=== PATIENT | male | born 1960 | race Caucasian/White ===

== ENCOUNTER 2023-06-15 10:27 | Inpatient (IN) | payer OTHER ==
[2023-06-15] VITALS (19 sets, daily range): BP systolic 80–165; BP diastolic 50–118; PULSE 63–95; RESP 20–24; TEMP 94.9; O2SAT 91–98
[~2023-06-15] VITALS: Ht 175.3 cm; Wt 142.6 kg
[2023-06-15] MEDS: propofol 1000mg/100ml bottle 100 ML IV SCH ×2 (10:40→12:09)
[2023-06-15] MEDS ORDERED: vancomycin inj 1,750 MG in normal saline 500ml IV soln 350 ML IV ONE (10:45)
[2023-06-15] MEDS: methylPREDNISolone sod succ 125mg/2ml vial IV ONE (10:57)
[2023-06-15] MEDS: propofol 1000mg/100ml bottle 100 ML IV ONE (11:01)
[2023-06-15 11:08] LABS: BASOPHILS % (AUTO) 0.6 % (0-1); EOSINOPHILS % (AUTO) 0 % (0-6); LYMPHOCYTES # (AUTO) 0.6 X10'3 (1.1-4.8); LYMPHOCYTES % (AUTO) 8.4 % (21-51); MEAN PLATELET VOLUME 9.2 FL (7.4-10.4); MONOCYTES # (AUTO) 0.7 X10'3 (0-0.9); MONOCYTES % (AUTO) 9.1 % (2-12); NEUTROPHILS # (AUTO) 6.2 X10'3 (1.8-7.7); NEUTROPHILS % (AUTO) 81.9 % (42-75); PLATELET COUNT 241 X10'3 (140-440); WHITE BLOOD COUNT 7.6 X10'3 (4.5-11.0)
[2023-06-15 11:12] LABS: ALANINE AMINOTRANSFERASE 32 U/L (12-78); ALBUMIN 3.5 G/DL (3.4-5.0); ALBUMIN/GLOBULIN RATIO 0.8 (1.1-1.5); ALKALINE PHOSPHATASE 141 IU/L (46-116); ANION GAP 9 (8-16); APTT 28 SECONDS (22-32); ASPARTATE AMINO TRANSFERASE 23 U/L (10-37); BILIRUBIN,TOTAL 0.3 MG/DL (0.1-1.0); BLOOD UREA NITROGEN 80 MG/DL (7-18); BUN/CREATININE RATIO 27.6 (10.0-20.0); CALCIUM 8.7 MG/DL (8.5-10.1); CHLORIDE 98 MMOL/L (99-107); GLUCOSE 223 MG/DL (70-104); INR 1.3 INR; POTASSIUM 5.8 MMOL/L (3.5-5.1); PROTHROMBIN TIME 13.5 SECONDS (9.0-12.0); SODIUM 136 MMOL/L (135-145); TOTAL CARBON DIOXIDE 29.1 MMOL/L (24-32); TOTAL PROTEIN 7.8 G/DL (6.4-8.2); eCRCL 26 ML/MIN; eGFR 22 ML/MIN
[2023-06-15 11:20] LABS: LIPASE 66 U/L (16-77); PRO BRAIN NATRIURETIC PEPTIDE 7886 PG/ML (0-125)
[2023-06-15 11:22] LABS: HEMATOCRIT 54.6 % (42.0-52.0); HEMOGLOBIN 17.5 g/dl (14.0-17.9); MEAN CORPUSCULAR HEMOGLOBIN 33.5 PG (27.0-31.0); MEAN CORPUSCULAR HGB CONC 32.1 g/dL (33.0-36.5); MEAN CORPUSCULAR VOLUME 104.5 FL (78-98); RED BLOOD COUNT 5.23 X10'6 (4.70-6.10); RED CELL DISTRIBUTION WIDTH 14.1 % (11.5-14.5)
[2023-06-15 11:28] LABS: ABG BASE EXCESS -6.3 mmol/L (-2.0-2.0); ABG HCO3 27.4 mmol/L (22.0-26.0); ABG OXYGEN SATURATION 86.2 % (94-97); ABG PCO2 (T) 79.4 mmHg (35.0-48.0); ABG PH (T) 7.132 (7.340-7.440); ABG PO2 (T) 43.9 mmHg (75.0-100.0); ALLEN'S TEST POSITIVE; FCOHb 1.5 % (0.0-3.9); FHHb 13.5 % (0.0-5.0); FMetHb 0.4 % (0.0-1.5); FO2Hb 84.6 % (94-97); MODE VENT - AC; PATIENT TEMPERATURE 33.3; PEEP 5 cm H2O; RESPIRATORY RATE 12 b/min; TIDAL VOLUME 475 mL; TOTAL HEMOGLOBIN 19.6 G/dl (14.0-17.9)
[2023-06-15] MEDS: etomidate 2mg/ml inj. IV ONE (11:35)
[2023-06-15] MEDS: succinylcholine 20mg/ml inj IV ONE (11:36)
[2023-06-15] MEDS ORDERED: VANCOmycin 2,000MG in NS 500ml IV soln IV ONE (11:40)
[2023-06-15] MEDS ORDERED: acetaminophen 325mg tablet PO PRN ×2 (12:55)
[2023-06-15] MEDS ORDERED: ipratropium/albuterol 3ml nebule NEB PRN (12:55)
[2023-06-15] MEDS: LidoCAINE 2% Topical Jelly 11mL syringe (UROJET) TOP ONE (12:55)
[2023-06-15] MEDS ORDERED: morphine 2 MG/ML inj. syringe IV PRN (12:55)
[2023-06-15] MEDS ORDERED: albuterol 2.5 MG/3 ML nebule NEB PRN (12:55)
[2023-06-15] MEDS ORDERED: magnesium hydroxide 30ml (MOM) UD suspension PO PRN (12:55)
[2023-06-15] MEDS ORDERED: ondansetron/PF 4mg/2ml inj IV PRN (12:55)
[2023-06-15] MEDS ORDERED: bisacodyl 10mg suppository rectal RC PRN (12:55)
[2023-06-15] MEDS: normal saline 1000ml 1,000 ML IV ONE ×2 (12:57→18:55)
[2023-06-15] MEDS: vancomycin/NS 1 GM ADD-VANTAGE 250 ML X 1 DOSE IV ONE (12:58)
[2023-06-15] MEDS: FENTANYL-0.9 % NACL/PF 100 ML IV PRN (12:59)
[2023-06-15] MEDS: piperacillin/tazo 4.5gm/100ml 100 ML IV ONE (13:00)
[2023-06-15 13:31] LABS: ABG BASE EXCESS -3.9 mmol/L (-2.0-2.0); ABG OXYGEN SATURATION 84.6 % (94-97); ABG PCO2 (T) 54.1 mmHg (35.0-48.0); ABG PH (T) 7.269 (7.340-7.440); ALLEN'S TEST POSITIVE; FCOHb 1.8 % (0.0-3.9); FHHb 15.1 % (0.0-5.0); FMetHb 0.3 % (0.0-1.5); FO2Hb 82.8 % (94-97); MODE VENT - AC; PATIENT TEMPERATURE 34.5; PEEP 8 cm H2O; TOTAL HEMOGLOBIN 17.4 G/dl (14.0-17.9)
[2023-06-15] MEDS: insulin regular, human 10 units/0.1 ml syringe IV ONE (13:48)
[2023-06-15] MEDS: dextrose 50%-water 50ml dispensing syringe IV ONE (13:49)
[2023-06-15] MEDS: normal saline 1000ml 1,000 ML IV SCH (14:18)
[2023-06-15] MEDS ORDERED: METO-539 PO (16:20)
[2023-06-15] MEDS ORDERED: ASPI-611 PO (16:20)
[2023-06-15] MEDS ORDERED: LISI20TA28 PO (16:20)
[2023-06-15] MEDS ORDERED: FURO40TA4 PO (16:20)
[2023-06-15] MEDS ORDERED: METF-1203 PO (16:20)
[2023-06-15] MEDS ORDERED: ATOR20TA66 PO (16:20)
[2023-06-15] MEDS ORDERED: AMLO10TA PO (16:20)
[2023-06-15] MEDS ORDERED: acetaminophen 325mg/10.15ml oral unit dose solution OGT PRN ×2 (16:23)
[2023-06-15] MEDS ORDERED: magnesium hydroxide 30ml (MOM) UD suspension OGT PRN (16:25)
[2023-06-15] MEDS ORDERED: etomidate 2mg/ml inj. ONE (17:00)
[2023-06-15 17:02] LABS: BILIRUBIN,URINE MODERATE (Neg); CLARITY,URINE CLOUDY (Clear); COLOR,URINE YELLOW (Yellow); GLUCOSE, URINE NEGATIVE (Neg); KETONES,URINE NEGATIVE (Neg); LEUKOCYTE ESTERASE ,URINE NEGATIVE (Neg); NITRITES, URINE NEGATIVE (Neg); OCCULT BLOOD,URINE NEGATIVE (Neg); PROTEIN,URINE 100 mg/dl (Neg); UROBILINOGEN,URINE 0.2 E.U/dL (0.2-1.0)
[2023-06-15] MEDS ORDERED: DEXTROSE 15 GM of carb/4 tabs (each vial/BOTTLE has 4 tablets) PO PRN ×2 (17:20)
[2023-06-15] MEDS ORDERED: dextrose 50%-water 50ml dispensing syringe IV PRN ×2 (17:20)
[2023-06-15] MEDS ORDERED: glucagon, human recombinant 1mg kit SUBCUT PRN (17:20)
[2023-06-15] MEDS: NORepinephrine 8mg/ 250ml NS 250 ML IV ONE (17:44)
[2023-06-15 17:45] LABS: UA COLLECTION TYPE FOLEY CATH
[2023-06-15 17:46] LABS: URINE AMPHETAMINE SCREEN NEGATIVE (Neg); URINE BARBITUATE SCREEN NEGATIVE (Neg); URINE BENZODIAZEPINES SCREEN NEGATIVE (Neg); URINE CANNABINOID SCREEN NEGATIVE (Neg); URINE COCAINE SCREEN NEGATIVE (Neg); URINE METHADONE SCREEN NEGATIVE (Neg); URINE OPIATE SCREEN NEGATIVE (Neg); URINE PHENCYCLIDINE SCREEN NEGATIVE (Neg)
[2023-06-15] MEDS: vancomycin/NS 1 GM ADD-VANTAGE 250 ML IV ONE (17:46)
[2023-06-15] MEDS: folic acid 1mg/0.2ml inj IV SCH (17:46)
[2023-06-15] MEDS: NORepinephrine 8mg/ 250ml NS 250 ML IV SCH (17:47)
[2023-06-15 17:50] LABS: HYALINE CASTS >30 /LPF (NEGATIVE)
[2023-06-15] MEDS: pantoprazole 40 MG vial IV SCH (17:50)
[2023-06-15] MEDS: clindamycin 600mg/D5W 50ml 50 ML IV SCH (17:50)
[2023-06-15 17:51] LABS: CAL OXALATE CRYSTALS 4+ /HPF (NEGATIVE); RENAL CELLS, URINE MANY /HPF; SPERM FEW /HPF (NEGATIVE); TRANSITIONAL EPI CELLS,URINE FEW /HPF
[2023-06-15 17:52] LABS: BACTERIA,URINE 2+ /HPF (Neg); RBC,URINE 0-2 /HPF (0-2); SQUAMOUS EPITHELIAL CELL,UR FEW /LPF (FEW); WBC,URINE 0-4 /HPF (0-4)
[2023-06-15 18:07] LABS: ALANINE AMINOTRANSFERASE 27 U/L (12-78); ALBUMIN 2.6 G/DL (3.4-5.0); ALBUMIN/GLOBULIN RATIO 0.8 (1.1-1.5); ALKALINE PHOSPHATASE 104 IU/L (46-116); ANION GAP 10 (8-16); ASPARTATE AMINO TRANSFERASE 23 U/L (10-37); BILIRUBIN,TOTAL 1.1 MG/DL (0.1-1.0); BLOOD UREA NITROGEN 78 MG/DL (7-18); BUN/CREATININE RATIO 29.3 (10.0-20.0); CALCIUM 7.8 MG/DL (8.5-10.1); CHLORIDE 100 MMOL/L (99-107); CREATININE 2.66 MG/DL (0.60-1.10); GLUCOSE 199 MG/DL (70-104); MAGNESIUM 2.2 MG/DL (1.5-2.4); PHOSPHORUS 4.6 MG/DL (2.3-4.5); SODIUM 136 MMOL/L (135-145); TOTAL CARBON DIOXIDE 26.3 MMOL/L (24-32); TOTAL PROTEIN 5.8 G/DL (6.4-8.2); eCRCL 29 ML/MIN; eGFR 24 ML/MIN
[2023-06-15 18:12] LABS: POTASSIUM 5.8 MMOL/L (3.5-5.1)
[2023-06-15] MEDS ORDERED: SODIUM ZIRCONIUM CYCLOSILICATE 10 GM POWD.PACK PO SCH (19:00)
[2023-06-15] MEDS: SODIUM ZIRCONIUM CYCLOSILICATE 10 GM POWD.PACK PO ONE (19:58)
[2023-06-15] MEDS: doxycycline inj 100 MG in normal saline 100ml IV soln 100 ML IV SCH (19:58)
[2023-06-15] MEDS: docusate sodium 100mg/10ml UD cup OGT SCH (19:59)
[2023-06-15 20:00] LABS: HEMOGLOBIN A1C 7.8 % (4.5-6.2)
[2023-06-15] MEDS ORDERED: famotidine 20mg tablet PO SCH (20:00)
[2023-06-15] MEDS: thiamine 100mg/ml 2ml inj. IV SCH (20:02)
[2023-06-15] MEDS: insulin glargine (Lantus) pen - multi-dose SQ SCH (21:00)
[2023-06-16] VITALS (37 sets, daily range): BP systolic 73–133; BP diastolic 52–86; PULSE 73–113; RESP 17–24; O2SAT 80–100
[2023-06-16] MEDS: insulin Lispro (HumaLOG) vial - multi-dose SQ SCH (02:28)
[2023-06-16 02:54] LABS: BASOPHILS % (AUTO) 0.1 % (0-1); EOSINOPHILS % (AUTO) 0 % (0-6); HEMATOCRIT 49.3 % (42.0-52.0); HEMOGLOBIN 15.9 g/dl (14.0-17.9); LYMPHOCYTES # (AUTO) 0.5 X10'3 (1.1-4.8); LYMPHOCYTES % (AUTO) 6.4 % (21-51); MEAN CORPUSCULAR HGB CONC 32.3 g/dL (33.0-36.5); MEAN PLATELET VOLUME 9.8 FL (7.4-10.4); MONOCYTES # (AUTO) 0.5 X10'3 (0-0.9); MONOCYTES % (AUTO) 6.4 % (2-12); NEUTROPHILS # (AUTO) 6.3 X10'3 (1.8-7.7); NEUTROPHILS % (AUTO) 87.1 % (42-75); PLATELET COUNT 195 X10'3 (140-440); RED BLOOD COUNT 4.83 X10'6 (4.70-6.10); RED CELL DISTRIBUTION WIDTH 14.4 % (11.5-14.5); WHITE BLOOD COUNT 7.2 X10'3 (4.5-11.0)
[2023-06-16 03:05] LABS: ALANINE AMINOTRANSFERASE 19 U/L (12-78); ALBUMIN 2.5 G/DL (3.4-5.0); ALBUMIN/GLOBULIN RATIO 0.9 (1.1-1.5); ALKALINE PHOSPHATASE 90 IU/L (46-116); ANION GAP 13 (8-16); ASPARTATE AMINO TRANSFERASE 16 U/L (10-37); BILIRUBIN,TOTAL 0.7 MG/DL (0.1-1.0); BLOOD UREA NITROGEN 76 MG/DL (7-18); BUN/CREATININE RATIO 33.6 (10.0-20.0); CALCIUM 7.9 MG/DL (8.5-10.1); CHLORIDE 99 MMOL/L (99-107); CREATININE 2.26 MG/DL (0.60-1.10); GLUCOSE 306 MG/DL (70-104); MAGNESIUM 1.9 MG/DL (1.5-2.4); PHOSPHORUS 3.3 MG/DL (2.3-4.5); POTASSIUM 4.7 MMOL/L (3.5-5.1); SODIUM 134 MMOL/L (135-145); TOTAL CARBON DIOXIDE 21.7 MMOL/L (24-32); TOTAL PROTEIN 5.3 G/DL (6.4-8.2); eCRCL 34 ML/MIN; eGFR 30 ML/MIN
[2023-06-16 03:06] LABS: ABG BASE EXCESS 0.4 mmol/L (-2.0-2.0); ABG HCO3 21.4 mmol/L (22.0-26.0); ABG OXYGEN SATURATION 93.9 % (94-97); ABG PCO2 (T) 26.9 mmHg (35.0-48.0); ABG PH (T) 7.518 (7.340-7.440); ABG PO2 (T) 59.8 mmHg (75.0-100.0); ALLEN'S TEST Modified; FCOHb 0.9 % (0.0-3.9); FMetHb 0.1 % (0.0-1.5); MODE VENT - P/C; PATIENT TEMPERATURE 37.2; PEEP 12 cm H2O; RESPIRATORY RATE 24 b/min; TOTAL HEMOGLOBIN 17.5 G/dl (14.0-17.9)
[2023-06-16] MEDS: enoxaparin 40mg/0.4ml syringe SUBCUT SCH (07:47)
[2023-06-16] MEDS: MULTIVIT-MIN/FERROUS GLUCONATE 9 MG/15 ML LIQUID OGT SCH (07:55)
[2023-06-16] MEDS: insulin regular, human U-100 3ml vial - multi-dose SQ SCH (08:37)
[2023-06-16] MEDS: vancomycin/NS 1 GM ADD-VANTAGE 250 ML IV SCH (09:45)
[2023-06-16] MEDS: mineral oil/petrolatum ophthal oint EACHEYE SCH (14:25)
[2023-06-16 16:34] LABS: ABG BASE EXCESS 0.4 mmol/L (-2.0-2.0); ABG HCO3 22.6 mmol/L (22.0-26.0); ABG OXYGEN SATURATION 89.2 % (94-97); ABG PCO2 (T) 30.8 mmHg (35.0-48.0); ABG PH (T) 7.484 (7.340-7.440); ABG PO2 (T) 53.4 mmHg (75.0-100.0); FCOHb 0.7 % (0.0-3.9); FHHb 10.7 % (0.0-5.0); FMetHb 0.1 % (0.0-1.5); FO2Hb 88.5 % (94-97); MODE VENT - P/C; PATIENT TEMPERATURE 37.2; PEEP 12 cm H2O; RESPIRATORY RATE 22 b/min; TIDAL VOLUME 546 mL; TOTAL HEMOGLOBIN 16.8 G/dl (14.0-17.9)
[2023-06-16] MEDS ORDERED: FENTANYL-0.9 % NACL/PF 100 ML IV PRN ×2 (16:46→17:11)
[2023-06-16] MEDS: NORepinephrine 8mg/ 250ml NS 250 ML IV SCH (16:55)
[2023-06-16] MEDS ORDERED: vancomycin/NS 1 GM ADD-VANTAGE 250 ML IV SCH (17:00)
[2023-06-16] MEDS: propofol 1000mg/100ml bottle 100 ML IV SCH (17:20)
[2023-06-16] MEDS ORDERED: pneumococcal 23-VAL P-sac vacc 25 mcg/0.5ml vial IMVAC ONE (18:30)
[2023-06-16] MEDS: CISatracurium besylate inj. 100 MG in normal saline 100ml IV soln 90 ML IV PRN (19:00)
[2023-06-16] MEDS: fentaNYL 2,500 MCG in Normal Saline 250ml IV soln bag IV SCH (20:35)
[2023-06-16 22:08] LABS: ABG BASE EXCESS -3.8 mmol/L (-2.0-2.0); ABG HCO3 22.6 mmol/L (22.0-26.0); ABG OXYGEN SATURATION 83.4 % (94-97); ABG PCO2 (T) 46.3 mmHg (35.0-48.0); ABG PH (T) 7.308 (7.340-7.440); FCOHb 1.1 % (0.0-3.9); FHHb 16.4 % (0.0-5.0); FO2Hb 82.5 % (94-97); MODE VENT - P/C; PATIENT TEMPERATURE 37.3; PEEP 15 cm H2O; RESPIRATORY RATE 22 b/min; TOTAL HEMOGLOBIN 17.9 G/dl (14.0-17.9)
[2023-06-17] VITALS (35 sets, daily range): BP systolic 86–115; BP diastolic 53–75; PULSE 74–92; RESP 22; O2SAT 85–93
[2023-06-17] MEDS: CISatracurium besylate inj. 100 MG in normal saline 100ml IV soln 90 ML IV PRN (01:01)
[2023-06-17 02:32] LABS: BASOPHILS % (AUTO) 0.4 % (0-1); EOSINOPHILS % (AUTO) 0.3 % (0-6); HEMATOCRIT 52.7 % (42.0-52.0); HEMOGLOBIN 17.1 g/dl (14.0-17.9); LYMPHOCYTES % (AUTO) 16.9 % (21-51); MEAN CORPUSCULAR HGB CONC 32.5 g/dL (33.0-36.5); MEAN CORPUSCULAR VOLUME 101.3 FL (78-98); MEAN PLATELET VOLUME 9.3 FL (7.4-10.4); MONOCYTES # (AUTO) 1.2 X10'3 (0-0.9); MONOCYTES % (AUTO) 9.8 % (2-12); NEUTROPHILS # (AUTO) 8.6 X10'3 (1.8-7.7); NEUTROPHILS % (AUTO) 72.6 % (42-75); PLATELET COUNT 230 X10'3 (140-440); RED CELL DISTRIBUTION WIDTH 14.2 % (11.5-14.5); WHITE BLOOD COUNT 11.8 X10'3 (4.5-11.0)
[2023-06-17 02:48] LABS: ALANINE AMINOTRANSFERASE 22 U/L (12-78); ALBUMIN 2.5 G/DL (3.4-5.0); ALBUMIN/GLOBULIN RATIO 0.7 (1.1-1.5); ALKALINE PHOSPHATASE 91 IU/L (46-116); ANION GAP 11 (8-16); ASPARTATE AMINO TRANSFERASE 13 U/L (10-37); BILIRUBIN,TOTAL 0.6 MG/DL (0.1-1.0); BLOOD UREA NITROGEN 64 MG/DL (7-18); BUN/CREATININE RATIO 34.6 (10.0-20.0); CALCIUM 8.5 MG/DL (8.5-10.1); CHLORIDE 104 MMOL/L (99-107); CREATININE 1.85 MG/DL (0.60-1.10); GLUCOSE 202 MG/DL (70-104); MAGNESIUM 2.1 MG/DL (1.5-2.4); POTASSIUM 4.4 MMOL/L (3.5-5.1); SODIUM 139 MMOL/L (135-145); TOTAL CARBON DIOXIDE 23.6 MMOL/L (24-32); eCRCL 41 ML/MIN; eGFR 37 ML/MIN
[2023-06-17 04:12] LABS: ABG BASE EXCESS -2.1 mmol/L (-2.0-2.0); ABG HCO3 20.6 mmol/L (22.0-26.0); ABG OXYGEN SATURATION 92.2 % (94-97); ABG PCO2 (T) 30.8 mmHg (35.0-48.0); ABG PH (T) 7.442 (7.340-7.440); ABG PO2 (T) 61.2 mmHg (75.0-100.0); FCOHb 0.3 % (0.0-3.9); FHHb 7.7 % (0.0-5.0); FMetHb 0.4 % (0.0-1.5); FO2Hb 91.6 % (94-97); MODE VENT - P/C; PATIENT TEMPERATURE 36.9; PEEP 17 cm H2O; RESPIRATORY RATE 22 b/min; TOTAL HEMOGLOBIN 18.1 G/dl (14.0-17.9)
[2023-06-17] MEDS: VANCOMYCIN LEVEL IV ONE (20:30)
[2023-06-17] MEDS: piperacillin/tazo 3.375gm/50ml 50 ML IV SCH (22:00)
[2023-06-18] VITALS (39 sets, daily range): BP systolic 66–124; BP diastolic 32–72; PULSE 44–119; RESP 21–23; O2SAT 50–91
[2023-06-18 02:49] LABS: ABG BASE EXCESS -11.1 mmol/L (-2.0-2.0); ABG HCO3 11.9 mmol/L (22.0-26.0); ABG OXYGEN SATURATION 90.9 % (94-97); ABG PCO2 (T) 21.3 mmHg (35.0-48.0); ABG PH (T) 7.367 (7.340-7.440); ABG PO2 (T) 61.7 mmHg (75.0-100.0); FCOHb 0.6 % (0.0-3.9); FMetHb 0.3 % (0.0-1.5); FO2Hb 90.1 % (94-97); MODE VENT - P/C; PATIENT TEMPERATURE 37.2; PEEP 17 cm H2O; RESPIRATORY RATE 22 b/min; TOTAL HEMOGLOBIN 13.2 G/dl (14.0-17.9)
[2023-06-18 02:59] LABS: EOSINOPHILS # (AUTO) 0.1 X10'3 (0-0.9); HEMOGLOBIN 16.1 g/dl (14.0-17.9); LYMPHOCYTES # (AUTO) 1.7 X10'3 (1.1-4.8); MONOCYTES # (AUTO) 0.9 X10'3 (0-0.9); RED CELL DISTRIBUTION WIDTH 14.5 % (11.5-14.5)
[2023-06-18 03:01] LABS: BASOPHILS % (AUTO) 0.4 % (0-1); EOSINOPHILS % (AUTO) 0.6 % (0-6); HEMATOCRIT 50.1 % (42.0-52.0); LYMPHOCYTES % (AUTO) 19.8 % (21-51); MEAN CORPUSCULAR HEMOGLOBIN 32.4 PG (27.0-31.0); MEAN CORPUSCULAR HGB CONC 32.1 g/dL (33.0-36.5); MEAN CORPUSCULAR VOLUME 101.1 FL (78-98); MEAN PLATELET VOLUME 9.4 FL (7.4-10.4); MONOCYTES % (AUTO) 11.1 % (2-12); NEUTROPHILS # (AUTO) 5.7 X10'3 (1.8-7.7); NEUTROPHILS % (AUTO) 68.1 % (42-75); PLATELET COUNT 200 X10'3 (140-440); RED BLOOD COUNT 4.96 X10'6 (4.70-6.10); WHITE BLOOD COUNT 8.4 X10'3 (4.5-11.0)
[2023-06-18 03:12] LABS: ALANINE AMINOTRANSFERASE 17 U/L (12-78); ALBUMIN/GLOBULIN RATIO 0.6 (1.1-1.5); ALKALINE PHOSPHATASE 81 IU/L (46-116); ANION GAP 11 (8-16); ASPARTATE AMINO TRANSFERASE 11 U/L (10-37); BILIRUBIN,TOTAL 0.7 MG/DL (0.1-1.0); BLOOD UREA NITROGEN 48 MG/DL (7-18); BUN/CREATININE RATIO 38.4 (10.0-20.0); CALCIUM 8.3 MG/DL (8.5-10.1); CHLORIDE 109 MMOL/L (99-107); CREATININE 1.25 MG/DL (0.60-1.10); GLUCOSE 140 MG/DL (70-104); MAGNESIUM 2.2 MG/DL (1.5-2.4); PHOSPHORUS 4.4 MG/DL (2.3-4.5); POTASSIUM 4.3 MMOL/L (3.5-5.1); PREALBUMIN 17.3 MG/DL (19-36); SODIUM 142 MMOL/L (135-145); TOTAL CARBON DIOXIDE 22.1 MMOL/L (24-32); TOTAL PROTEIN 5.5 G/DL (6.4-8.2); eCRCL 61 ML/MIN; eGFR 59 ML/MIN
[2023-06-18] MEDS ORDERED: DEXTROSE 15 GM of carb/4 tabs (each vial/BOTTLE has 4 tablets) OGT PRN ×2 (09:56→09:57)
[2023-06-18 10:34] LABS: OXYGEN SATURATION (MIXED VEN) 71.4 % (60-80); PO2 MIXED VENOUS (TEMP COR) 45.4 mmHg (35-46)
[2023-06-18] MEDS: furosemide 10 MG/1 ML 10ml inj IV ONE (10:35)
[2023-06-18] MEDS ORDERED: VANCOMYCIN LEVEL IV ONE (16:30)
[2023-06-19] MEDS ORDERED: dextrose 50%-water 50ml dispensing syringe IV PRN ×2 (00:50)
[2023-06-19] MEDS ORDERED: DEXTROSE 15 GM of carb/4 tabs (each vial/BOTTLE has 4 tablets) PO PRN ×2 (00:50)
[2023-06-19] MEDS ORDERED: glucagon, human recombinant 1mg kit SUBCUT PRN (00:50)
[2023-06-19] MEDS ORDERED: insulin Lispro (HumaLOG) vial - multi-dose SQ SCH (07:00)
[2023-06-19] MEDS ORDERED: folic acid 1mg tablet OGT SCH (08:00)
[2023-06-19] MEDS ORDERED: thiamine 100mg tablet OGT SCH (08:00)
[2023-06-19] MEDS ORDERED: pneumococcal 23-VAL P-sac vacc 25 mcg/0.5ml vial IMVAC ONE (10:00)
== END 2023-06-19 02:07 | DRG 871 ==
LOC: ER 10:27 → ED HOLD 12:59 → CICU 2S 15:40
PROVIDERS: ADMIT Internal Medicine Critical Care Medicine; ATTEND Internal Medicine Critical Care Medicine
PROC: 0BH17EZ Insertion of Endotracheal Airway into Trachea, Via Natural or Artificial Opening (ICD-10-PCS; principal; 2023-06-15)
PROC: 5A1945Z Respiratory Ventilation, 24-96 Consecutive Hours (ICD-10-PCS; 2023-06-15)
PROC: 05HY33Z Insertion of Infusion Device into Upper Vein, Percutaneous Approach (ICD-10-PCS; 2023-06-15)
PROC: 03HY32Z Insertion of Monitoring Device into Upper Artery, Percutaneous Approach (ICD-10-PCS; 2023-06-16)
DX: A41.02 Sepsis due to Methicillin resistant Staphylococcus aureus (principal); G93.41 Metabolic encephalopathy; I21.A1 Myocardial infarction type 2; I50.23 Acute on chronic systolic (congestive) heart failure; R65.21 Severe sepsis with septic shock; J80 Acute respiratory distress syndrome; N17.0 Acute kidney failure with tubular necrosis; J98.11 Atelectasis; R18.8 Other ascites; Z68.42 Body mass index [BMI] 45.0-49.9, adult; E87.4 Mixed disorder of acid-base balance; J44.1 Chronic obstructive pulmonary disease with (acute) exacerbation; E72.20 Disorder of urea cycle metabolism, unspecified; L03.311 Cellulitis of abdominal wall; Z66 Do not resuscitate; E66.01 Morbid (severe) obesity due to excess calories; G47.30 Sleep apnea, unspecified; F17.210 Nicotine dependence, cigarettes, uncomplicated; I11.0 Hypertensive heart disease with heart failure; Z20.822 Contact with and (suspected) exposure to COVID-19; F19.10 Other psychoactive substance abuse, uncomplicated; F10.10 Alcohol abuse, uncomplicated; L08.9 Local infection of the skin and subcutaneous tissue, unspecified; E11.65 Type 2 diabetes mellitus with hyperglycemia; E86.0 Dehydration; E87.5 Hyperkalemia; Z51.5 Encounter for palliative care; Z91.199 Patient's noncompliance with other medical treatment and regimen due to unspecified reason
CPT/HCPCS: 36415; 36600; 70450; 71045; 71250; 74176; 80053; 80202; 80305; 81001; 82140; 82607; 82803; 82810; 82948; 83036; 83605; 83690; 83735; 83880; 84100; 84134; 84145; 84484; 85018; 85025; 85610; 85730; 87040; 87070; 87502; 87503; 87811; 90732; 93005; 93306; 94003; 94760; 99291; A4314; A5200; A6213; A6250; A6258; A6449; C1751; C1758; C9113; G0378; J0330; J1650; J1815; J1940; J2543; J2704; J2930; J3010; J3370; J3411; J3490; J7030; J7040; J7050